=== PATIENT | female | born 1990 | race Caucasian/White ===

== ENCOUNTER 2021-11-09 16:05 | Inpatient (IN) | payer SELFPAY ==
[2021-11-09 15:50] VITALS: BMI 30.6
[2021-11-09 16:04] VITALS: BP 123/78; PULSE 120; TEMP 36.2; O2SAT 98
[2021-11-09] MEDS: Lactated Ringers 1,000 ML 50 ML IV (16:15)
[2021-11-09] MEDS: Oxytocin 30 units/NS 500 ml 30 UNITS/500 ML IV.SOLN IV (16:53)
[2021-11-09 17:08] LABS: Absolute Lymphocyte Count 2.31 X10^3/uL (0.83-4.51); Absolute Neutrophil Count 8.7 X10^3/uL (2.0-7.7); Basophil# 0.07 X10^3/uL; Basophil% 0.6 % (0-1); Eosinophil# 0.22 X10^3/uL; Eosinophils% 1.8 % (0-5); Hematocrit 40.7 % (37-47); Hemoglobin 13.3 g/dL (12.0-15.0); Lymphocyte # 2.31 X10^3/ul (0.83-4.51); Lymphocyte % 19.3 % (19-41); Mean Corp Hgb Conc 32.7 g/dL (32-36); Mean Corpuscular Volume 76.6 fL (81-99); Mean Platelet Vol. 10.4 fl (6.2-12.0); Monocyte# 0.56 X10^3/uL; Monocyte% 4.7 % (0-10); NRBC Flagged by Analyzer 0 % (0-5); Neutrophil # 8.67 X10^3/uL (2.7-7.7); Neutrophil % 72.3 % (47-70); Platelet Count 221 K/mm3 (150-450); RBC Distribution Width CV 16.8 % (11.6-14.6); RBC Distribution Width SD 46.5 fl (35.1-43.9); Red Blood Count 5.31 M/mm3 (4.2-5.4)
[2021-11-09 17:38] VITALS: BP 113/77; PULSE 102; TEMP 36.6
[2021-11-09 18:17] LABS: Amphetamine Urine VISTA NEGATIVE (<1000 ng/mL); Barbiturate Urine VISTA NEGATIVE (< 200 ng/mL); Benzodiazepine Urine VISTA NEGATIVE (< 200 ng/mL); Cocaine Urine VISTA NEGATIVE (< 300 ng/mL); Ecstacy Urine VISTA NEGATIVE (< 500 ng/mL); Methadone Urine VISTA NEGATIVE (< 300 ng/mL); PCP Urine VISTA NEGATIVE (< 25 ng/mL); THC Urine VISTA NEGATIVE (< 50 ng/mL); Vista UDS pH Range 7
[2021-11-09 19:01] LABS: Group B Strep DNA By PCR POSITIVE (Negative); Probe Check PASS
[2021-11-09 19:02] LABS: Chlamydia Trachomatis by PCR Negative (Negative); Neisserai gonorrhoeae by PCR Negative (Negative); Probe Check PASS; Sample Adequacy Control PASS; Specimen Processing Control PASS
[2021-11-09 19:06] LABS: HIV - WCH Non-Reactive (Nonreactive); Hepatitis B Surface Antigen Non-Reactive (Nonreactive); Hepatitis C Antibody Non-Reactive (Nonreactive)
[2021-11-09 19:31] VITALS: BP 110/70; PULSE 99
[2021-11-09 19:32] VITALS: PULSE 100; TEMP 37.3; O2SAT 98
[2021-11-09 20:53] VITALS: BP 128/75; PULSE 96; TEMP 36.7; O2SAT 98
[2021-11-09 22:46] VITALS: BP 107/66; PULSE 96; TEMP 36.6; O2SAT 97
[2021-11-10] VITALS (37 sets, daily range): BP systolic 53–123; BP diastolic 36–83; PULSE 75–135; RESP 16–20; TEMP 36.3–37; O2SAT 98–99
[2021-11-10] MEDS: Penicillin G 3,000,000 Units 50 ML 100 UNITS IV (00:46)
--- NOTE | 2021-11-10 02:01 | PCM.HP.OB ---
HPI - General General Date of Admission: 11/09/21 HPI Narrative SHRUTI ANDREW, is a 31 F at 41 weeks 6 days presents as referred by her director of community center due to low heart rate baseline. Upon evaluation placenta is on the left side not low-lying, infant is head down with normal MILAGROS grossly. hand flexion extension is seen. Initial heart rate tracing had minimal variability but was reactive and overall reassuring. It was discussed with the patient and induction of labor recommended. Maternal Data Information PREMA Calculator Estimated Delivery Date Method Current WG Current Estimate 10/27/21 Manual 42w 0d PFSH PFSH Medical History (Updated 11/10/21 @ 02:[address] Ely Santiago MD) Mastitis depression hemorrhage Sepsis Home Medications prenat.vits,kirill,quc-tyfe-diiiv [ #2] 1 tab PO DAILY 11/09/21 [History Last Taken 11/08/21 1 tab] Allergy/AdvReac Type Severity Reaction Status Date / Time hydrocodone [From Vicodin] Allergy Hives Verified 11/09/21 16:07 Family History (Updated 11/09/21 @ 16:34 by Sharon Jorgensen RN) Grandfather Lung cancer Grandfather Pancreatic cancer Grandfather Diabetes Surgical History no surgical history Social History Smoking Status: Never smoker History 3 Elective abortions Hx Para 2 Spontaneous abortions Hx # Term Pregnancies 2 Ectopic pregnancies Hx # Pregnancies Multiple births # of living children 2 Addt'l History: Uncomplicated home births 42-week spontaneous labors. Upper 8 pounds. NST FHR Rate Baby A Baseline: 120 Variability:: Minimal Accelerations:: 15 x 15 Decelerations:: None NST Reactive:: Yes FHR Category:: Category II Uterine Activity:: irregular ROS Constitutional Constitutional: Reports systems reviewed and no addt'l complaints, except as documented Eyes Eyes: Denies change in vision ENT HEENT: Reports systems reviewed and no addt'l complaints, except as documented; Denies headache(s) Cardiovascular Cardiovascular: Reports systems reviewed and no addt'l complaints, except as documented; Denies chest pain or dyspnea Respiratory/Chest Respiratory/Chest: Reports systems reviewed and no addt'l complaints, except as documented Gastrointestinal Gastrointestinal: Reports systems reviewed and no addt'l complaints, except as documented; Denies abdominal pain Genitourinary Genitourinary: Reports systems reviewed and no addt'l complaints, except as documented, contractions Details: present (irregular) and movement Details: present; Denies dysuria or genital lesions Musculoskeletal Musculoskeletal: Reports systems reviewed and no addt'l complaints, except as documented Neurologic Neurologic: Reports systems reviewed and no addt'l complaints, except as documented Endocrine Endocrinology: Reports systems reviewed and no addt'l complaints, except as documented Vital Signs Vital Signs Vital Signs: 11/09/21 16:04 11/09/21 17:38 11/09/21 19:31 Temperature 97.2 F L 97.9 F Temperature Source Temporal Pulse Rate 120 H 102 H 99 Blood Pressure 123/78 H 113/77 110/70 BP Systolic 123 113 110 BP Diastolic 78 77 70 Pulse Ox 98 11/09/21 19:32 11/09/21 20:53 11/09/21 22:46 Temperature 99.2 F H 98.0 F 97.9 F Temperature Source Temporal Temporal Pulse Rate 100 96 96 Blood Pressure 128/75 H 107/66 BP Systolic 128 107 BP Diastolic 75 66 Pulse Ox 98 98 97 11/10/21 00:56 11/10/21 01:52 Temperature 98.6 F Temperature Source Temporal Pulse Rate 116 H 135 H Blood Pressure 119/69 BP Systolic 119 BP Diastolic 69 Pulse Ox 99 98 Weight Weight: 189 lb 9.561 oz Body Mass Index (BMI) 30.6 Physical Exam Const alert, oriented x3, no apparent distress and healthy appearing HEENT normocephalic and moist oral mucous membranes Head and Scalp: atraumatic Neck full ROM, no lymphadenopathy, supple and thyroid normal General: trachea midline Lymph Lymphatic: no lymphadenopathy noted Chest inspection of chest normal Resp normal respiratory effort Cardio regular rate GI normal to inspection, nondistended, normoactive bowel sounds, soft to palpation and non-tender Inspection: gravid external exam normal Manual OB Exam: estimated gestational size appropriate, presentation cephalic, dilated, effaced and station Extremity normal to inspection General Extremity: Negative for edema Skin no rashes or lesions noted Neuro no focal motor deficits and deep tendon reflexes 2+ bilaterally Motor Exam: strength 5/5 throughout and clonus absent Psych mental status grossly normal Labs Labs Labs: Blood Type A POSITIVE Antibody Screen NEGATIVE Hct 40.7 % (37-47) Hgb 13.3 g/dL (12.0-15.0) Syphilis Total Ab Pending Rubella IgG Antibody Pending Hep Bs Antigen Non-Reactive (Nonreactive) HIV 1&2 Antibody Non-Reactive (Nonreactive) C.trachomatis DNA (PCR) Negative (Negative) Group B Strep DNA POSITIVE (Negative) H Assessment & Plan (1) Encounter for induction of labor: (2) Post term at 41 weeks gestation: (3) Category II heart rate tracing during labor and delivery: COMMENT: recommend IOL and due to postdates PLAN: support for minimal intervention as much as possible. pitocin, arom PRN.
--- NOTE | 2021-11-10 03:14 | EX.PCM.OBRPT ---
Assessment & Plan (1) Category II heart rate tracing during labor and delivery: COMMENT: recommend IOL and due to postdates (2) Post term at 41 weeks gestation: (3) Encounter for induction of labor: (4) Vaginal delivery: COMMENT: iol postdates SM boy Emrick Maternal Data Information PREMA Calculator Estimated Delivery Date Method Current WG Current Estimate 10/27/21 Manual 42w 0d Vaginal Delivery Operative Information Date of Procedure: 11/10/21 Pre-Operative Diagnosis: iol postdates Post-Operative Diagnosis: same Surgery / Procedure Performed: Spontaneous Vaginal Delivery Type of Anesthesia: None Special Medications: none Estimated Blood Loss: 100 Fluids Replaced: crystalloid Findings Description of Procedure: Patient began pushing and delivered the head in the EROS presentation. The head was delivered atraumatically . The anterior and posterior shoulders delivered without complication followed by the rest of the infant and the was placed on the maternal abdomen. Delayed cord clamping was employed for approximately 60 seconds. Cord was clamped and cut and gentle traction was applied to the cord and the placenta delivered spontaneously immediately following it was noted to be intact with three-vessel cord. The perineum and vagina were inspected and noted to have no laceration. EBL was 100 cc. Patient and tolerated delivery well. Presentation: EROS Amniotic Membrane Rupture Type: Artificial Amniotic Fluid Description: Clear Placental Delivery Description: Spontaneous Placenta Disposition: [facility] Cord Vessel Description: 3 Vessels Cord Entanglement: None Delayed Cord Clamping: Yes Post Vaginal Delivery Medications Given After Delivery: IV Pitocin Episiotomy Description: None Laceration: None Complication Complications: None Procedures Urinary/Genital [id number]: [id number] Vaginal Delivery Only
--- NOTE | 2021-11-10 03:24 | PCM.DC ---
Discharge Instructions Diet Discharge Diet: No restrictions Activity Discharge Activity: Return to Normal Activity, May Not Drive (while taking narcotic pain medications.) and May Shower May resume sexual activity in: 4-6 weeks Dressing / Incision Call your doctor if your incision/area has: Continuous Slow Oozing, Sudden Increased Bleeding, Increased Pain/ Swelling, Increased Redness and Foul Smelling Discharge Follow Up Care Please Follow Up With: Ely Santiago MD When: Call [phone] to make an appointment with your doctor in 6 weeks. If you had elevated blood pressure or 4th degree laceration, you will need to be seen in 2 weeks. Test Results: Test results from this visit will be discussed in further detail at your follow-up appointment, if applicable. Discharge Plan Admission Admit Date/Time: 11/09/21 16:05 Primary Reason for Your Visit: vaginal delivery Attending Provider: Ely Santiago Discharge Orders/Prescriptions Prescriptions: No Action #2 Tablet 1 tab PO DAILY RF: 0 Disposition Disposition (needs filled in before D/C Order can be placed): Home, Self Care
[2021-11-10] MEDS: Lactated Ringers 1,000 ML 999 ML IV (04:13)
[2021-11-10] MEDS: Oxytocin 30 units/NS 500 ml 30 UNITS/500 ML IV.SOLN 999 UNITS IV (04:13)
--- NOTE | 2021-11-10 04:52 | NURSING ---
blood loss total from weighed pads 1210mL, provider to be notified of quantitative blood loss total
--- NOTE | 2021-11-10 07:30 | NURSING ---
report given to Sujey Jasso RN who is assuming care of pt at this time
[2021-11-10] MEDS: Lactated Ringers 500 ML 999 ML IV (08:45)
[2021-11-10 08:54] LABS: Rubella IgG Reactive (Nonreactive); Syphilis Antibodies Non-reactive
[2021-11-10 09:09] LABS: Hematocrit 28.7 % (37-47); Hemoglobin 9.9 g/dL (12.0-15.0); Mean Corp Hgb Conc 34.5 g/dL (32-36); Mean Corpuscular Hgb 26.3 pg (27.0-32.0); Mean Corpuscular Volume 76.1 fL (81-99); Mean Platelet Vol. 10.8 fl (6.2-12.0); Platelet Count 229 K/mm3 (150-450); RBC Distribution Width SD 46.1 fl (35.1-43.9); Red Blood Count 3.77 M/mm3 (4.2-5.4); White Blood Count 17.9 K/mm3 (4.4-11.0)
[2021-11-10 09:13] LABS: Scan Indicated on CBC? Y/N NO
--- NOTE | 2021-11-10 10:51 | NURSING ---
LE: Pt passed out in bed with lab draw. Staff assist called. ManuelRN Brendan,JADYN and Natividad matthesw RN in room. BP's q 5 min (see GE for VS trend at that time, RR 12-15, SPO2 98%. Jareb, at bedside. Supportive. Pt out for less then 1 min. Pallor and diaphoretic. LR bolus restarted per Brendan SALAMANCA.
--- NOTE | 2021-11-10 12:07 | NURSING ---
1205: Report given to MariRN
--- NOTE | 2021-11-10 17:59 | PCM.DC ---
Discharge Instructions Diet Discharge Diet: No restrictions Activity May resume sexual activity in: 4-6 weeks Dressing / Incision Call your doctor if your incision/area has: Continuous Slow Oozing, Sudden Increased Bleeding, Increased Pain/ Swelling, Increased Redness and Foul Smelling Discharge Follow Up Care Please Follow Up With: Ely Santiago MD Test Results: Test results from this visit will be discussed in further detail at your follow-up appointment, if applicable. Discharge Plan Admission Admit Date/Time: 11/09/21 16:05 Primary Reason for Your Visit: vaginal delivery Attending Provider: Ely Santiago Discharge Orders/Prescriptions Prescriptions: No Action #2 Tablet 1 tab PO DAILY RF: 0 Disposition Disposition (needs filled in before D/C Order can be placed): Home, Self Care
--- NOTE | 2021-11-10 19:17 | NURSING ---
late entry: pt additional quantitative blood loss of 194mL from pad at 0640
== END 2021-11-10 19:10 | disposition home or self-care (01) | DRG 807 ==
LOC: WP 16:15 → WPOUT 11-10 10:46
PROVIDERS: Nurse Practitioner Women's Health; Admitting Provider Obstetrics & Gynecology; Visit Provider Obstetrics & Gynecology
DX: O48.0 Post-term pregnancy (principal); Z3A.41 41 weeks gestation of pregnancy; Z37.0 Single live birth
CPT/HCPCS: 59025; 59050; 76815; 80307; 85025; 85027; 86703; 86762; 86780; 86803; 86850; 86900; 86901; 87086; 87088; 87340; 87491; 87591; 87653; 99218; J7120; G0378

== ENCOUNTER → 2022-09-23 | Outpatient (CLI) | payer SELFPAY ==
--- NOTE | 2022-09-23 07:52 | US_ITS ---
INDICATION: anatomy EXAMINATION: Ultrasound US OB Complete W/ Detail single or first gestation TECHNIQUE: Transabdominal pelvic ultrasound was performed. COMPARISON: None. LMP: 05/05/2022 Beta-hCG: Unknown. Provided EGA: None. FINDINGS: INTRAUTERINE GESTATION(s): Single. HEART MOTION is 144 bpm. BIOMETRIC MEASUREMENTS: HEAD CIRCUMFERENCE: 19.1 cm cm which corresponds to 21 weeks and 3 days. BIPARIETAL DIAMETER: 4.9 cm cm which corresponds to 20 weeks and 5 days. ABDOMINAL CIRCUMFERENCE: 16.4 cm cm which corresponds to 21 weeks and 3 days. FEMORAL LENGTH: 3.5 cm cm which corresponds to 21 weeks. ESTIMATED DUE DATE (PREMA): 02/02/2023 ESTIMATED WEIGHT: 407 g +/- 61 g, 93 percentile PRESENTATION: Variable AMNIOTIC FLUID INDEX (MILAGROS): Within normal limits but measured, the largest pocket measures 4.8 cm. BIOPHYSICAL PROFILE (BPP): Not assessed. PLACENTA: Anterior. There is no placenta previa or abruption. CERVIX: The cervix is closed. MATERNAL OVARIES: Not seen. FREE FLUID: None. ANATOMY: LATERAL VENTRICLES: Within normal limits CHOROID PLEXUS: Visualized. MIDLINE FALX: Visualized. CEREBELLUM: Unremarkable CISTERNA MAGNA: Within normal limits UPPER LIP: Not clearly visualized on FOUR CHAMBER HEART VIEW: Unremarkable. LEFT VENTRICULAR OUTFLOW TRACT: Visualized. RIGHT VENTRICULAR OUTFLOW TRACT: Visualized. STOMACH: Visualized. KIDNEYS: Borderline bilateral renal pelvocaliectasis measuring up to 4 mm bilaterally. URINARY BLADDER: Visualized. UMBILICAL CORD INSERTION into the abdomen: Unremarkable. UMBILICAL CORD vessel number: Normal three vessel cord. SPINE: Essentially unremarkable UPPER AND LOWER EXTREMITIES: Present. GENDER: Male. US/OB Anatomy Scan IMPRESSION: 1. Single live intrauterine with an estimated gestational age of 21 weeks and 1 day. 2. Mild bilateral renal pelvocaliectasis which can be further evaluated by follow-up exam. Electronically Signed: Marlon Wise MD at 9:09 EDT ,
== END | disposition home or self-care (01) ==
PROVIDERS: Referring Provider Registered Nurse; Visit Provider Registered Nurse
DX: Z34.90 Encounter for supervision of normal pregnancy, unspecified, unspecified trimester (principal)
CPT/HCPCS: 76805; 76817

== ENCOUNTER → 2022-12-19 | Outpatient (CLI) | payer SELFPAY ==
[2022-12-19 15:56] LABS: Absolute Lymphocyte Count 1.89 X10^3/uL (0.83-4.51); Absolute Neutrophil Count 6.9 X10^3/uL (2.0-7.7); Basophil# 0.07 X10^3/uL; Basophil% 0.7 % (0-1); Eosinophil# 0.14 X10^3/uL; Eosinophils% 1.4 % (0-5); Hematocrit 39.9 % (37-47); Hemoglobin 13.4 g/dL (12.0-15.0); Lymphocyte # 1.89 X10^3/ul (0.83-4.51); Lymphocyte % 19.3 % (19-41); Mean Corp Hgb Conc 33.6 g/dL (32-36); Mean Corpuscular Hgb 26.7 pg (27.0-32.0); Mean Corpuscular Volume 79.6 fL (81-99); Mean Platelet Vol. 9.9 fl (6.2-12.0); Monocyte# 0.56 X10^3/uL; Monocyte% 5.7 % (0-10); NRBC Flagged by Analyzer 0 % (0-5); Neutrophil # 6.89 X10^3/uL (2.7-7.7); Neutrophil % 70.4 % (47-70); Platelet Count 203 K/mm3 (150-450); RBC Distribution Width CV 14.2 % (11.6-14.6); RBC Distribution Width SD 40.5 fl (35.1-43.9); Red Blood Count 5.01 M/mm3 (4.2-5.4); White Blood Count 9.8 K/mm3 (4.4-11.0)
[2022-12-19 16:10] LABS: Glucose Challenge Gest 1H 50g 142 mg/dL (70-140)
[2022-12-19 17:29] LABS: HIV - WCH Non-Reactive (Nonreactive); Hepatitis B Surface Antigen Non-Reactive (Nonreactive); Hepatitis C Antibody Non-Reactive (Nonreactive); Rubella IgG Reactive (Nonreactive); Syphilis Antibodies Non-reactive
== END | disposition home or self-care (01) ==
PROVIDERS: Referring Provider Obstetrics & Gynecology; Visit Provider Obstetrics & Gynecology
DX: Z34.90 Encounter for supervision of normal pregnancy, unspecified, unspecified trimester (principal)
CPT/HCPCS: 36415; 82950; 85025; 86703; 86762; 86780; 86803; 86850; 86900; 86901; 87340

== ENCOUNTER 2023-02-16 22:50 | Inpatient (IN) | payer SELFPAY ==
[2023-02-16 23:22] VITALS: PULSE 117; O2SAT 98
[2023-02-16 23:42] LABS: Absolute Lymphocyte Count 2.63 X10^3/uL (0.83-4.51); Absolute Neutrophil Count 8.6 X10^3/uL (2.0-7.7); Basophil# 0.11 X10^3/uL; Basophil% 0.9 % (0-1); Eosinophil# 0.13 X10^3/uL; Hematocrit 41.8 % (37-47); Lymphocyte # 2.63 X10^3/ul (0.83-4.51); Lymphocyte % 20.3 % (19-41); Mean Corp Hgb Conc 33.5 g/dL (32-36); Mean Corpuscular Hgb 27.1 pg (27.0-32.0); Mean Corpuscular Volume 80.9 fL (81-99); Mean Platelet Vol. 10.7 fl (6.2-12.0); Monocyte# 0.94 X10^3/uL; Monocyte% 7.3 % (0-10); NRBC Flagged by Analyzer 0 % (0-5); Neutrophil # 8.63 X10^3/uL (2.7-7.7); Neutrophil % 66.6 % (47-70); Platelet Count 198 K/mm3 (150-450); RBC Distribution Width CV 14.1 % (11.6-14.6); RBC Distribution Width SD 41.1 fl (35.1-43.9); Red Blood Count 5.17 M/mm3 (4.2-5.4); White Blood Count 12.9 K/mm3 (4.4-11.0)
[2023-02-16 23:50] VITALS: TEMP 36.1
[2023-02-17] VITALS (38 sets, daily range): BP systolic 106–136; BP diastolic 59–78; PULSE 71–102; RESP 15–16; TEMP 36.2–36.9; O2SAT 96–99
[2023-02-17 00:29] LABS: Syphilis Antibodies Non-reactive
--- NOTE | 2023-02-17 00:33 | HP.PCM.OB_ITS ---
HPI - General General Date of Admission: 02/16/23 HPI Narrative SHRUTI ANDREW, is a 32 y/o @ 41 weeks 1 day who presents to L&D in active labor. She has been non-compliant with care and has not been seen in the office since November when she was asked to collect labs. She is demanding to deliver on the floor and declines any intervention including ROM. She does however consent to IM pitocin due to 2 prior hemorrhages. She did do a 1 hr GCT and failed it but refused a 3 hr gtt and is refusing glucose checks on baby and other routine procedures for her baby. Maternal Data Information PREMA Calculator Estimated Delivery Date Method Current WG Current Estimate 02/09/23 LMP (Certain) 41w 1d PFSH PFS Medical History Abnormal glucose affecting Category II heart rate tracing during labor and delivery Encounter for induction of labor Mastitis Post term at 41 weeks gestation depression hemorrhage Sepsis Vaginal delivery Home Medications prenat.vits,kirill,tel-naqa-nyypn 1 tab PO DAILY 11/09/21 [History Last Taken 11/08/21 1 tab] magnesium 200 mg tablet 200 mg PO DAILY Check with primary doctor 09/23/22 [History Last Taken Unknown] polysaccharide iron complex 150 mg iron capsule (iFerex 150) 150 mg PO DAILY Check with primary doctor 09/23/22 [History Last Taken Unknown] vitamin K2 90 mcg capsule 90 mcg PO DAILY 09/23/22 [History Last Taken Unknown] Allergy/AdvReac Type Severity Reaction Status Date / Time hydrocodone [From Vicodin] Allergy Hives Verified 02/16/23 23:33 Family History Grandfather Lung cancer Grandfather Pancreatic cancer Grandfather Diabetes Social History Smoking Status: Never smoker History 3 Elective abortions Hx Para 3 Spontaneous abortions Hx # Term Pregnancies 2 Ectopic pregnancies Hx # Pregnancies Multiple births # of living children 2 Past Pregnancies Del. Date Name GA/Weeks Outcome Route Bth Weight Gen Labor Lgth Anesthesia Del Locatn Provider FOB Unknown Chidi live - full term 8# 15oz Male none homebirth Unknown Anel live - full term 8#8 Female homebirth Unknown Emeric live - full term 8#15 [facility] Visit Details Expected Delivery Route/Plan OB Flowsheet Initial Weight: Not Recorded Date -?-?-?-?-?-?-?-?-?-?-?-?- EGA Weight BP Urine Prot -?-?-?-?-?-?-?-?-?-?-?-?- Glucose FHR FuHt Pres Dilation -?-?-?-?-?-?-?-?-?-?-?-?- Effaced St Visit Note 09/23/22 -?-?-?-?-?-?-?-?-?-?-?-?- 20w 1d 177 lb 2 oz 122/70 Nega tive -?-?-?-?-?-?-?-?-?-?-?-?- Negative -?-?-?-?-?-?-?-?-?-?-?-?- NOB. declines pa p and NOB labs. reviewed benefit of obtaining. hx of PPH with G2 and G3. currently on iron supplementation. declines genetic screening. NOB. declines pap and NOB la bs. reviewed benefit of obtaining. hx of PPH with G2 and G3. currently on iron supplementation. declines genetic screening. will consider CBC, Rubella. NOB at 20+1. declines pap an d NOB labs/STI screening. reviewed benefit of obtaining. hx of PPH with G2 and G3. currently on iron supplementation. declines genetic screening. will consider CBC, Rubella, glucose, type and screen at next visit. STI screening during delivery is accepte d. 10/26/22 -?-?-?-?-?-?-?-?-?-?-?-?- 24w 6d 183 lb 118/75 Negative -?-?-?-?-?-?-?--?-?-?-?-?- Negative 150 25 -?-?-?-?-?-?-?-?-?-?-?-?- JV- no lof, vagi nal bleeding, or dec fm. Pt still deciding on labs. we discussed just doing t&s, cbc, gct. Explained importance and if declines other options for care outside of our facility (last resort) pt was reasonable and stated that she only said no because she didn't understand the reasons behind the recommendations. 12/01/22 -?-?-?-?-?-?-?-?-?-?-?-?- 30w 0d 189 lb 2 oz 125/80 Nega tive -?-?-?-?-?-?-?-?-?-?-?-?- Negative 135 30 -?-?-?-?-?-?-?-?-?-?-?-?- JV- still no lab s done despite our discussion last visit. plans to go soon. LARC form signed today. 12/19/22 -?-?-?-?-?-?-?-?-?-?-?-?- 32w 4d 189 lb 8 oz 111/76 Nega tive -?-?-?-?-?-?-?-?-?-?-?-?- Negative 140 32 -?-?-?-?-?-?-?-?-?-?-?-?- LC- obtaining la bs today. no ctx/lof/vb. good fm. ROS Constitutional Constitutional: Denies change in weight, fatigue, fever(s), headache(s), poor appetite or weakness Eyes Eyes: Denies blurry vision, change in vision, seeing flashes or spots in vision ENT HEENT: Denies dizziness, headache(s), loss taste/smell or sore throat Cardiovascular Cardiovascular: Denies chest pain, dizziness, dyspnea, irregular heart rhythm, leg edema, palpitations, rapid heart rate or vomiting Respiratory/Chest Respiratory/Chest: Denies chest tightness, cough, dyspnea or breast pain Gastrointestinal Gastrointestinal: Denies abdominal pain, anorexia, constipation, cramping, diarrhea, hemorrhoids, vomiting or weight changes Genitourinary Genitourinary: Denies dysuria, flank pain, genital lesions, genital pain, urinary frequency or urinary urgency Musculoskeletal Musculoskeletal: Denies back pain, difficulty walking, joint pain, limited range of motion, muscle cramps or numbness Integumentary Integumentary: Denies lesions or unusual bruising Neurologic Neurologic: Denies abnormal movements, abnormal speech, dizziness, numbness, se izure-like activity or syncope Psychiatric Psychiatric: Denies anxiety, behavioral changes, change in appetite, change in libido, cognitive impairment, confusion, depression, difficulty concentrating, hallucinations or suicidal thoughts Endocrine Endocrinology: Denies excessive sweating, polydipsia or polyuria Hematologic/Lymphatic Hematologic/Lymphatic: Denies easy bleeding, easy bruising or lymphadenopathy Allergic/Immunologic Allergic/Immunologic: Denies itchy eyes, lip swelling, seasonal rhinorrhea, rhinitis, throat swelling, tongue swelling, eczemia, wheezing or asthma Vital Signs Vital Signs Vital Signs: 02/16/23 23:22 02/16/23 23:22 02/16/23 23:50 Temperature Temperature Source Temporal Pulse Rate 117 H Blood Pressure BP Systolic BP Diastolic Pulse Ox 98 02/16/23 23:50 02/17/23 00:07 Temperature 97.0 F L Temperature Source Pulse Rate Blood Pressure 136/78 H BP Systolic 136 BP Diastolic 78 Pulse Ox Physical Exam Const alert, oriented x3, no apparent distress and healthy appearing General Appearance: cooperative; Negative for anxious HEENT normocephalic Face and Sinus: normal facial exam Resp normal respiratory effort Effort and Inspection: able to speak in complete sentences Cardio regular rate GI Inspection: gravid Palpation: Negative for tender external exam normal Back/Spine no CVA tenderness Extremity normal to inspection General Extremity: Negative for edema Skin Lesions: no lesions Rashes: no rashes Psych mental status grossly normal Labs Labs Labs: Blood Type A POSITIVE Antibody Screen NEGATIVE Hct 41.8 % (37-47) Hgb 14.0 g/dL (12.0-15.0) Obstetrics US Syphilis Total Ab Non-reactive Rubella IgG Antibody Reactive (Nonreactive) Hep Bs Antigen Non-Reactive (Nonreactive) HIV 1&2 Antibody Non-Reactive (Nonreactive) Glucose 1 Hr 50 gm 142 mg/dL (70-140) H Group B Strep DNA POSITIVE (Negative) H Rhogam given: No Assessment & Plan (1) Abnormal glucose affecting : COMMENT: needs 3 hr GTT (2) History of hemorrhage, currently : COMMENT: G2 & G3 PPH, 1000ml EBL (3) Abnormal ultrasound: COMMENT: 4mm renal pelvocaliectasis -repeat u/s in 4 weeks-09/27/22 Pt declines to have US as it is not covered by her insurance. (4) Supervision of low-risk : COMMENT: PRRSP-late to care. PREMA 02/14/2022. Anel Murillo Emeric. BOY. SP:Brianna (5) : QUALIFIERS: Weeks of gestation: 32 weeks Qualified Code(s): Z3A.32 - 32 weeks gestation of COMMENT: declines genetic and carrier screening. declines NOB labs. obtained at 32 weeks PLAN: Plan Patient presents IAL, plan expectant management for , pitocin/AROM PRN if needed. Pain management: none, wants to delivery on the floor . GBS uknown,. did not come for visits to have this collected . Management of any complications: non-compliance. will be consulting social work I have reviewed the [facility] and made any clinically relevant updates.
--- NOTE | 2023-02-17 00:40 | DCINST_ITS ---
Discharge Instructions Diet Discharge Diet: No restrictions Activity Discharge Activity: Return to Normal Activity, May Not Drive (while taking narcotic pain medications.) and May Shower May resume sexual activity in: 4-6 weeks Dressing / Incision Call your doctor if your incision/area has: Continuous Slow Oozing, Sudden Increased Bleeding, Increased Pain/ Swelling, Increased Redness and Foul Smelling Discharge Follow Up Care Please Follow Up With: April Iyer, DO When: Call [phone] to make an appointment with your doctor in 6 weeks. If you had elevated blood pressure or 4th degree laceration, you will need to be seen in 2 weeks. Test Results: Test results from this visit will be discussed in further detail at your follow- up appointment, if applicable. Discharge Plan Admission Admit Date/Time: 02/16/23 22:50 Attending Provider: April Iyer Primary Care Provider: Care Physician,No Primary Discharge Orders/Prescriptions Prescriptions: No Action magnesium 200 mg tablet 200 mg PO DAILY polysaccharide iron complex [iFerex 150] 150 mg iron capsule 150 mg PO DAILY vitamin K2 90 mcg capsule 90 mcg PO DAILY #2 Tablet 1 tab PO DAILY Referrals / Follow Up: Care Physician,No Primary [Primary Care Provider] -
[2023-02-17 01:50] LABS: Group B Strep DNA By PCR POSITIVE (Negative); Probe Check PASS
[2023-02-17] MEDS: Oxytocin 10 UNITS/ML Vial IM (02:09)
[2023-02-17] MEDS: Oxytocin 15 Units/NS 250ml 15 UNITS/250 ML IV.SOLN 334 UNITS IV (02:15)
--- NOTE | 2023-02-17 02:18 | EX.PCM.OBRPT ---
Assessment & Plan (1) Abnormal glucose affecting : COMMENT: needs 3 hr GTT (2) History of hemorrhage, currently : COMMENT: G2 & G3 PPH, 1000ml EBL (3) Abnormal ultrasound: COMMENT: 4mm renal pelvocaliectasis -repeat u/s in 4 weeks-09/27/22 Pt declines to have US as it is not covered by her insurance. (4) Supervision of low-risk : COMMENT: PRRSP-late to care. PREMA 02/14/2022. Anel Murillo Emeric. BOY. SP:Brianna (5) : QUALIFIERS: Weeks of gestation: 32 weeks Qualified Code(s): Z3A.32 - 32 weeks gestation of COMMENT: declines genetic and carrier screening. declines NOB labs. obtained at 32 weeks Maternal Data Information PREMA Calculator Estimated Delivery Date Method Current WG Current Estimate 02/09/23 LMP (Certain) 41w 1d Final PREMA: 02/09/23 Final PREMA Source: LMP Gestational age: 41 weeks 1 day Vaginal Delivery Maternal Presentation Maternal Presentation: Active Labor Type of Induction: Amniotomy Operative Information Date of Procedure: 02/17/23 Pre-Operative Diagnosis: @ 41 weeks 1 day, limited care, active labor Post-Operative Diagnosis: @ 41 weeks 1 day, limited care, active labor Surgery / Procedure Performed: Spontaneous Vaginal Delivery Type of Anesthesia: None Estimated Blood Loss: 250cc Findings Description of Procedure: Patient began pushing and delivered the head in the EROS presentation. The head was delivered atraumatically and a loose nuchal cord ?1 was identified and easily reduced over the 's head. The anterior and posterior shoulders delivered without complication followed by the rest of the infant and the was placed on the maternal abdomen. Delayed cord clamping was employed for approximately 60 seconds. Cord was clamped and cut and gentle traction was applied to the cord and the placenta delivered spontaneously immediately following it was noted to be intact with three-vessel cord. The perineum and vagina were inspected and noted to have no laceration. EBL was 250cc. Patient and tolerated delivery well. Presentation: Vertex Amniotic Membrane Rupture Type: Artificial Time of Membrane Rupture: 2:00 am Amniotic Fluid Description: Clear Placenta Disposition: [facility] Cord Vessel Description: 3 Vessels Cord Entanglement: Around neck x 1, loose Infant A Gender: Male (1 minute): 7 (5 minute): 7 Delayed Cord Clamping: Yes Post Vaginal Delivery Medications Given After Delivery: IV Pitocin and IM Pitocin Episiotomy Description: None Laceration: None Complication Complications: None Multi Select Codes Urinary/Genital Urinary/Genital CPT Codes: 47007 Vaginal Delivery [facility]
[2023-02-17] MEDS: Methylergonovine 0.2 MG/ML Ampul IM (02:27)
[2023-02-17 06:22] LABS: Chlamydia Trachomatis by PCR Negative (Negative); Neisserai gonorrhoeae by PCR Negative (Negative); Probe Check PASS; Sample Adequacy Control PASS; Specimen Processing Control PASS
--- NOTE | 2023-02-17 11:43 | NURSING ---
1132: Left message for motion picture set grip provider explaining that parents would like to leave AMA as long as mom feels okay and baby is nursing fine.
[2023-02-18 06:03] VITALS: BP 115/80; PULSE 70; RESP 16; TEMP 36.4
[2023-02-18 07:17] VITALS: BP 118/72; PULSE 85; PULSE 90; O2SAT 96
[2023-02-18 07:27] VITALS: BP 118/72; PULSE 88; RESP 16; TEMP 36.2; O2SAT 97
--- NOTE | 2023-02-18 07:45 | PCM.PN.OB ---
Subjective Subjective Patient doing well without complaints. Tolerating PO. Ambulating and voiding without difficulty. Feeding well. Denies chest pain, shortness of breath, calf pain/swelling, fevers, chills, lightheadedness. Objective Data Objective Data Vital Signs: Vital Signs Temp Pulse Resp BP Pulse Ox O2 Del Method 97.1 F L 88 16 118/72 97 Room Air 02/18/23 07:27 02/18/23 07:27 02/18/23 07:27 02/18/23 07:27 02/18/23 07:27 02/18/23 07:27 Oxygen Delivery Method Room Air Intake & Output: Intake and Output for Last 24 Hours 02/16/23 02/17/23 02/18/23 23:59 23:59 23:59 Intake Total 167 / 167 Output Total 684 / 684 Balance -517 / -517 Lab / Micro Data Attestation: I reviewed the patient's lab results. Result Diagrams: 02/16/23 23:05 ROS Constitutional Constitutional: Reports systems reviewed and no addt'l complaints, except as documented; Denies anorexia or headache(s) Cardiovascular Cardiovascular: Reports systems reviewed and no addt'l complaints, except as documented; Denies dizziness, dyspnea, nausea or tachypnea Respiratory/Chest Respiratory/Chest: Reports systems reviewed and no addt'l complaints, except as documented; Denies cough, dyspnea, shortness of breath at rest or tachypnea Gastrointestinal Gastrointestinal: Reports systems reviewed and no addt'l complaints, except as documented; Denies abdominal pain, constipation or nausea Genitourinary Genitourinary: Reports systems reviewed and no addt'l complaints, except as documented; Denies burning urination, difficulty urinating, dysuria, urinary frequency or urinary incontinence Musculoskeletal Musculoskeletal: Reports systems reviewed and no addt'l complaints, except as documented Integumentary Integumentary: Reports systems reviewed and no addt'l complaints, except as documented Neurologic Neurologic: Reports systems reviewed and no addt'l complaints, except as documented; Denies abnormal speech, dizziness or headache(s) Psychiatric Psychiatric: Reports systems reviewed and no addt'l complaints, except as documented Endocrine Endocrinology: Reports systems reviewed and no addt'l complaints, except as documented Hematologic/Lymphatic Hematologic/Lymphatic: Reports systems reviewed and no addt'l complaints, except as documented Physical Exam Const alert, oriented x3 and no apparent distress Neck full ROM Resp normal respiratory effort, normal air movement and no retractions Effort and Inspection: able to speak in complete sentences and symmetric chest movement GI soft to palpation Bladder / Kidney Exam: bladder normal to palpation Uterus Palpation: uterus fundus firm (U1) Extremity normal to inspection and full ROM Psych mental status grossly normal, thought process normal and cooperative Assessment & Plan (1) Abnormal glucose affecting : COMMENT: needs 3 hr GTT (2) Abnormal ultrasound: COMMENT: 4mm renal pelvocaliectasis -repeat u/s in 4 weeks-09/27/22 Pt declines to have US as it is not covered by her insurance. (3) Supervision of low-risk : COMMENT: PRRSP-late to care. PREMA 02/14/2022. Anel Murillo Emeric. BOY. SP:Brianna PLAN: s/p PPD # 1 1. routine post delivery care 2. breast feeding- support given 3. rh positive 4. rubella immune 5. discharge home Charges/Coding Multi Select Codes Urinary/Genital Urinary/Genital CPT Codes: No Charge
--- NOTE | 2023-02-18 07:47 | DCINST_ITS ---
Discharge Instructions Diet Discharge Diet: No restrictions Activity May resume sexual activity in: 4-6 weeks Dressing / Incision Call your doctor if your incision/area has: Continuous Slow Oozing, Sudden Increased Bleeding, Increased Pain/ Swelling, Increased Redness and Foul Smelling Discharge Follow Up Care Please Follow Up With: April Iyer DO Test Results: Test results from this visit will be discussed in further detail at your follow- up appointment, if applicable. Discharge Plan Admission Admit Date/Time: 02/16/23 22:50 Primary Reason for Your Visit: vaginal of Attending Provider: April Iyer Primary Care Provider: Care Physician,No Primary Instructions Patient Instructions: After a Vaginal Discharge Orders/Prescriptions Prescriptions: No Action magnesium 200 mg tablet 200 mg PO DAILY polysaccharide iron complex [iFerex 150] 150 mg iron capsule 150 mg PO DAILY vitamin K2 90 mcg capsule 90 mcg PO DAILY #2 Tablet 1 tab PO DAILY Referrals / Follow Up: Care Physician,No Primary [Primary Care Provider] - Disposition Disposition (needs filled in before D/C Order can be placed): Home, Self Care
[2023-02-18 08:21] VITALS: BP 118/72; PULSE 88; RESP 16; TEMP 36.2; O2SAT 97
== END 2023-02-18 09:10 | disposition home or self-care (01) | DRG 807 ==
PROVIDERS: Admitting Provider Obstetrics & Gynecology; Visit Provider Obstetrics & Gynecology
DX: O48.0 Post-term pregnancy (principal); Z37.0 Single live birth; O69.81X0 Labor and delivery complicated by cord around neck, without compression, not applicable or unspecified; Z3A.41 41 weeks gestation of pregnancy
CPT/HCPCS: 59025; 59050; 85025; 86780; 86850; 86900; 86901; 87491; 87591; 87653; 99221; G0378